=== PATIENT | male | born 1950 | race Caucasian/White ===

== ENCOUNTER 2021-12-23 08:00 | Outpatient (RCR) | payer MEDICARE, SELFPAY | END 2021-12-23 08:46 | disposition home or self-care (01) | LOC: HO.PT 08:00 | PROVIDERS: Visit Provider Urology | DX: R32 Unspecified urinary incontinence (principal) | CPT/HCPCS: 97110; 97112; 97140; 97162 ==

== ENCOUNTER 2024-06-28 08:28 | Outpatient (RCR) | payer MEDICARE, SELFPAY | END 2024-06-28 09:47 | disposition home or self-care (01) | LOC: HO.PT 08:28 | PROVIDERS: PCP Internal Medicine; Visit Provider Urology | DX: N39.41 Urge incontinence (principal) | CPT/HCPCS: 97110; 97112; 97140; 97161 ==